=== PATIENT | female | born 1950 | race Caucasian/White ===

== ENCOUNTER 2018-06-10 13:46 | Day surgery (SDC) | payer MEDICARE, OTHER, SELFPAY ==
[2018-06-04 15:03] VITALS: BMI 22.2
[2018-06-10] VITALS (7 sets, daily range): BP systolic 128–176; BP diastolic 59–88; PULSE 65–91; RESP 12–17; TEMP 36.5–36.8; O2SAT 95–100; BMI 22.2
--- NOTE | 2018-06-10 | PATH_ITS ---
[facility] Accession Number: [id number] . 01 Material submitted: . PART A: endometrium - RESECTION ENDOMETRIAL POLYP PART B: endometrium - ENDOMETRIAL CURETTINGS . 02 Diagnosis: A. Designated Endometrial Polyp, Resection: Endocervical polyp. No evidence of neoplasm. . B. Endometrium, Curettage: Scant squamous epithelium with no diagnostic abnormality. No evidence of neoplasm. V/06/12/2018 . 02 Electronically signed: . Nitin Guerra MD, PhD, Pathologist NPI- [id number] . 01 Gross description: . Part A: RESECTION ENDOMETRIAL POLYP: Received in formalin are multiple fragment(s) of pink, soft tissue measuring 3.2 x 2.5 x 0.5 cm in aggregate submitted entirely in 2 cassette(s) Part B: ENDOMETRIAL CURETTINGS: Received in formalin are minute fragments of mucoid and hemorrhagic material measuring 0.1 x 0.1 x 0.1 cm in aggregate. Submitted in toto in 1 cassette. /CKI /CKI . 02 Pathologist provided ICD-10: N84.1 . 02 CPT . 971778, [id number] Performed at: 01 [facility] [address] [facility], [place], [place] [id number] MD Kranthi Hoskins MD Phone: [phone] Performed at: 02 [facility] [address] [place], [place] [id number] MD Ruma Olsen MD Phone: [phone]
--- NOTE | 2018-06-10 15:21 | SUR.OPER ---
Lithotomy on padded OR bed, head on pillow, arms secured on padded arm boards at <90 degrees abduction. Legs secured in padded yellow fins stirrups.
[2018-06-10] MEDS: LACTATED RINGERS 1,000 ML 42 ML IV (15:24)
--- NOTE | 2018-06-10 15:30 | PM.PREOP ---
Pre-operative Note Interval Note History & Physical reviewed/Exam performed by Physician: Yes Changes to H&P: No
--- NOTE | 2018-06-10 16:22 | P.OP_ITS ---
Operative Date/Time/Diagnoses Date of procedure: 06/10/18 Time of procedure: 16:17 Pre-op diagnosis: Thickened endometrium on ultrasound in postmenopausal female Post-op diagnosis: same Procedure & Clinicians Procedure: Hysteroscopy with resection of intracavitary mass polyp versus fibroid Same procedure as scheduled: Yes Indications: Thickened endometrium seen on ultrasound Surgeon: Yu Nichole Click Yes if Unassisted: Yes Anesthesia Type: General Operative Notes Findings: Large intracavitary mass polyp versus fibroid benign in appearance Closure Type: not applicable Specimen(s): other (Intracavitary mass and endometrial curettage) Estimated Blood Loss (mL): 5 Blood products transfused: none Procedure in detail: Patient was brought to the operating room where she underwent general anesthesia. She was placed in low Yellofin stirrups and p repped and draped in the usual sterile fashion. No antibiotics were indicated. She had pulsatile stockings in place and functional. Warming was with blankets. A check system was reviewed with the staff in the room prior to the case. A single-tooth tenaculum was placed on the anterior lip of the cervix and the cervix was dilated to a #8 Hegar dilator. The hysteroscope was placed through cervix into the uterus with a sorbital solution running in under constant suction. The large intracavitary mass was resected using the resectoscope set at 80 mendez. After resection of the mass there was no bleeding. Endometrial curettage was performed and tissue sent to pathology. Patient went to the recovery room in good condition. Counts of instruments and sponges were correct. Approximately 1500 cc of fluid use I=O. Condition: stable Disposition: same day surgery Plan for aftercare: Follow-up in 2 weeks.
--- NOTE | 2018-06-10 16:47 | SUR.PHASEII ---
pt tolerating water and crackers, at bedside with pt, Dr Nichole spoke with both pt and .
== END 2018-06-10 17:08 | disposition home or self-care (01) ==
PROVIDERS: Visit Provider Specialist
PROC: 0UDB8ZZ Extraction of Endometrium, Via Natural or Artificial Opening Endoscopic (ICD-10-PCS; CPT 58558; principal; 2018-06-10 15:00)
DX: N84.1 Polyp of cervix uteri (principal)
CPT/HCPCS: 58558; 88305; J1100; J2405; J2704; J3010